=== PATIENT | female | born 1935 | race Caucasian/White ===

== ENCOUNTER 2022-11-09 09:58 | Inpatient (IN) | payer MEDICARE ==
[~2022-11-09] VITALS: Ht 160 cm; Wt 105.0 kg
[2022-11-09] VITALS (11 sets, daily range): BP systolic 154–178; BP diastolic 65–82
[2022-11-09] MEDS ORDERED: SIMVASTATIN5 MG PO (10:18)
[2022-11-09] MEDS ORDERED: METFORMIN500 M2 PO (10:19)
--- NOTE | 2022-11-09 10:20 | NUR ---
PT ESCORTED VIA WHEELCHAIR TO ROOM 15 FOR EVAL OF SOB
[2022-11-09] MEDS ORDERED: NOVOLOG MIX100 U/ML SC (10:24)
[2022-11-09] MEDS ORDERED: JANUVIA50 MG PO (10:30)
[2022-11-09] MEDS ORDERED: LEVOTHYROXIN50 MCG PO (10:31)
[2022-11-09 10:44] LABS: MEAN CELL VOLUME 65.8 fL CALC (80.0-100.0); MEAN CORPUSCULAR HGB 18.1 pG CALC (26.0-32.0); MEAN CORPUSCULAR HGB CONC 27.5 g/dL CAL (32.0-36.0); NEUT# 4.73 thou/uL (2.00-7.15); RED BLOOD COUNT 2.6 mill/uL (4.20-5.60)
--- NOTE | 2022-11-09 10:45 | NUR ---
LAB @ BS FOR SWABS, EKG DONE-GIVEN TO DR. MARROQUIN @ BS. O2SAT 96% RA @ REST, STATES SHE GETS SOB UPON EXERTION ONLY
[2022-11-09 10:54] LABS: ALBUMIN 3.7 g/dL (3.2-5.0); ALKALINE PHOSPHATASE 99 u/l (38-126); ANION GAP 12 (6-22 (CALC)); BILIRUBIN, TOTAL 0.3 mg/dL (0.0-1.4); BUN 18 mg/dL (8-23); BUN/CREATININE RATIO 23 (12-20 (CALC)); CARBON DIOXIDE 25 mmol/l (22-30); CHLORIDE 97 mmol/l (95-108); CREATININE 0.8 mg/dL (0.5-1.0); GFR FOR AFR.AMER. > 60 ML/MIN (>=60 (CALC)); GFR OTHER RACES > 60 ML/MIN (>=60 (CALC)); POTASSIUM 3.8 mmol/l (3.5-5.1); SGOT/AST 35 u/l (9-36); SODIUM 129 mmol/l (137-146); TOTAL PROTEIN 7.1 g/dL (6.3-8.2)
[2022-11-09 10:55] LABS: HEMATOCRIT 17.1 % (37.0-47.0); HEMOGLOBIN 4.7 g/dl (12.0-16.0)
--- NOTE | 2022-11-09 11:06 | NUR ---
STARTED WHEEZING AFTER MOVING AROUND WITH X-RAY, @ BS, BROOKS ORDERED,
[2022-11-09] MEDS ORDERED: ASPIRIN325 MG PO (13:36)
[2022-11-09] MEDS ORDERED: AVAPRO300 MG PO (13:36)
[2022-11-09] MEDS ORDERED: PIOGLITAZONE HY15 MG PO (13:38)
[2022-11-09] MEDS ORDERED: DORZOLAMIDE HYD1 SOL OD (13:40)
[2022-11-09] MEDS ORDERED: TIMOLOL MAL0.5 % OD (13:41)
[2022-11-09] MEDS ORDERED: PRILOSEC20 MG/CAP PO (13:42)
--- NOTE | 2022-11-09 13:43 | NUR ---
ABLE TO WALK TO BR TO VOID LARGE AMT. lAYED IN STRETCHER AND URINATED LARGE AMOUNT BEFORE ASKING AND UNHOOKED FOR BR.
[2022-11-09] MEDS ORDERED: LANTUS SOL100 UNIT/M SC (13:45)
--- NOTE | 2022-11-09 16:03 | NUR ---
VOID X 4- FLUSHING IT
--- NOTE | 2022-11-09 16:46 | NUR ---
PT ADMITTED TO ROOM MS 276. BEDSIDE REPORT GIVEN TO TENZIN. PT TRANSPORTED TO FLOOR VIA WHEELCHAIR
--- NOTE | 2022-11-09 17:57 | NUR ---
PT ARRIVED ON UNIT AT 1633 TRANSPORTED VIA W/C BY ED STAFF, ALERT AND ORIENTED X 3, DENIES PAIN/DISCOMFORT, ORIENTED TO ROOM AND CALL FLORENTINO, SETTLED IN BED, CALL FLORENTINO IN REACH AND BED LOCKED IN LOWEST POSITION.
--- NOTE | 2022-11-09 20:30 | NUR ---
PT IN BED WATCHING TV AND MULUAN AT BEDSIDE. FIRST UNIT OF BLOOD COMPLETED. NO S/S OF DISTRESS OR ADVERSE REACTION NOTED. DENIES PAIN OR DISCOMFORT. LINE FLUSH. CALL LIGHT IN REACH AND BED IN LOWEST POSITION.
[2022-11-09 20:41] LABS: TSH, 3RD GENERATION 1.11 uIU/mL (0.47 - 4.68)
--- NOTE | 2022-11-09 21:19 | NUR ---
PATIENT RESTING IN BED. 2ND UNIT OF PRBC'S HUNG ORDERED VIA LEFT AC SITE. SITE REMAINS HEALTHY AT THIS TIME. UNIT#[id number]. PATIENT INSTRUCTED REGUARDING POSSIABLE ADVERSE REACTIONS SUCH CHILLS, HIVES, SOB, FEVER. BACK PAIN OR HEADACHES. VERBALIZES UNDERSTANDING. ASSISTED OOB TO THE BSC TOP VOID 250CC OF CLEAR YELLOW URINE. ASSISTED BACK TO BED. MONITORING PATIENT AT BEDSIDE PER [facility] PROTOCOL.
[2022-11-10] VITALS (14 sets, daily range): BP systolic 124–171; BP diastolic 48–71
--- NOTE | 2022-11-10 00:50 | NUR ---
PT IN BED RESTING. DENIES PAIN OR DICOMFORT. NO S/S OF DISTRESS NOTED. 2 UNIT OF BLOOD COMPLETED. NO ADVERSE REACTION NOTED. CALL LIGHT IN REACH AND BED IN LOWEST POSITION.
--- NOTE | 2022-11-10 01:31 | NUR ---
PATIENT RESTING IN BED-MIN ASSIST OOB TO BSC TO VOID 200CC OF PALE YELLOW URINE. ASSISTED BACK TO BED, 3RD UNIT OF PRBC'S HUNG VIA LEFT AC SITE-SITE REMAINS HEALTHY. UNIT #[id number] INFUSING. REINFORCED TEACHING WITH PATIENT REGUARDING POSSIBLE ADVERSE REACTIONS. VERBALIZES UNDERSTANDING. MONITORING PATIENT AT BEDSIDE PER [facility] PROTOCOL.
--- NOTE | 2022-11-10 04:46 | NUR ---
PT IN BED RESTING WITH EYES CLOSED BREATHING EVEVN AND UNLABORED NO S/S OF DISTRESS NOTED. CALL LIGHT IN REACH AND BED IN LOWEST POSITION.
--- NOTE | 2022-11-10 04:58 | NUR ---
3RD UNIT OF BLOOD COMPLETED. NO ADVERSE REACTIION NOTED. PT DENIES PAIN OR DISCOMFORT. NO S/S OF DISTRESS NOTED. CALL LIGHT IN REACH AND BED IN LOWEST POSITION.
[2022-11-10 05:19] LABS: IMMATURE GRANULOCYTES 0.8 % (0.0-5.0); MEAN CORPUSCULAR HGB 22.1 pG CALC (26.0-32.0); MEAN CORPUSCULAR HGB CONC 30.5 g/dL CAL (32.0-36.0); NEUT# 5.48 thou/uL (2.00-7.15); RED BLOOD COUNT 4.07 mill/uL (4.20-5.60); RED CELL DISTRI WIDTH 24.6 % (11.5-15.5)
[2022-11-10 05:34] LABS: HEMATOCRIT 29.5 % (37.0-47.0); MEAN CELL VOLUME 72.5 fL CALC (80.0-100.0)
[2022-11-10 05:42] LABS: ALBUMIN 3.7 g/dL (3.2-5.0); ALKALINE PHOSPHATASE 111 u/l (38-126); ANION GAP 14 (6-22 (CALC)); BUN 12 mg/dL (8-23); BUN/CREATININE RATIO 20 (12-20 (CALC)); CARBON DIOXIDE 26 mmol/l (22-30); CHLORIDE 93 mmol/l (95-108); CREATININE 0.6 mg/dL (0.5-1.0); GFR FOR AFR.AMER. > 60 ML/MIN (>=60 (CALC)); GFR OTHER RACES > 60 ML/MIN (>=60 (CALC)); POTASSIUM 3.7 mmol/l (3.5-5.1); SGOT/AST 46 u/l (9-36); SODIUM 129 mmol/l (137-146); TOTAL PROTEIN 6.8 g/dL (6.3-8.2)
[2022-11-10 05:45] LABS: BILIRUBIN, TOTAL 1.4 mg/dL (0.0-1.4)
--- NOTE | 2022-11-10 07:20 | NUR ---
BEDSIDE SHIFT REPORT, PT SLEEPING IN LEFT SIDE-LYING POSITION, BREATHING EVEN AND NON-LABORED, NO SIGN OF DISCOMFORT AT THIS TIME, TELE MONITOR IN PLACE, CALL FLORENTINO IN REACH AND BED LOCKED IN LOWEST POSITION.
--- NOTE | 2022-11-10 09:14 | NUR ---
AWAKE ALERT AND ORIENTED AT THIS TIME, SAT UP IN BED BED FOR MEAL, NO C/O DISCOMFORT, CALL FLORENTINO IN REACH.
[2022-11-10] MEDS ORDERED: TAM75CAP PO (12:05)
[2022-11-10] MEDS ORDERED: ZITHROMAX250 MG PO (12:06)
[2022-11-10] MEDS ORDERED: VENOFER20 MG/ML IV (12:07)
--- NOTE | 2022-11-10 14:47 | NUR ---
Discharge instructions given. Patient verbalizes understanding of same. Discharged in good condition via Wheelchair to Home with spouse. All belongings sent with pt.
== END 2022-11-10 14:47 | disposition home or self-care (01) | DRG 812 ==
LOC: ED 09:58 → ED-I 11:20 → ED 11:42 → MS2 11:43
PROVIDERS: Family Medicine; ADMIT Internal Medicine; ATTEND Internal Medicine
PROC: 30233N1 Transfusion of Nonautologous Red Blood Cells into Peripheral Vein, Percutaneous Approach (ICD-10-PCS; principal; 2022-11-09)
PROC: 30233N1 Transfusion of Nonautologous Red Blood Cells into Peripheral Vein, Percutaneous Approach (ICD-10-PCS; 2022-11-09)
PROC: 30233N1 Transfusion of Nonautologous Red Blood Cells into Peripheral Vein, Percutaneous Approach (ICD-10-PCS; 2022-11-10)
DX: D50.9 Iron deficiency anemia, unspecified (principal); E87.1 Hypo-osmolality and hyponatremia; J10.1 Influenza due to other identified influenza virus with other respiratory manifestations; I11.0 Hypertensive heart disease with heart failure; I50.9 Heart failure, unspecified; E11.9 Type 2 diabetes mellitus without complications; E03.9 Hypothyroidism, unspecified; E78.5 Hyperlipidemia, unspecified; E66.9 Obesity, unspecified; Z86.73 Personal history of transient ischemic attack (TIA), and cerebral infarction without residual deficits; Z79.84 Long term (current) use of oral hypoglycemic drugs; Z20.822 Contact with and (suspected) exposure to COVID-19
CPT/HCPCS: J1756; P9016

== ENCOUNTER 2024-11-08 11:03 | Emergency (ER) | payer MEDICARE ==
[~2024-11-08] VITALS: Ht 160 cm; Wt 97.0 kg
[~2024-11-08 11:03] MED LIST: ASPIRIN325 MG PO; AVAPRO300 MG PO; DORZOLAMIDE HYD1 SOL OD; JANUVIA50 MG PO; LANTUS SOL100 UNIT/M SC; LEVOTHYROXIN50 MCG PO; METFORMIN500 M2 PO; NOVOLOG MIX100 U/ML SC; PIOGLITAZONE HY15 MG PO; PRILOSEC20 MG/CAP PO; SIMVASTATIN5 MG PO; TAM75CAP PO; TIMOLOL MAL0.5 % OD; VENOFER20 MG/ML IV; ZITHROMAX250 MG PO
[2024-11-08 13:50] LABS: URINE BILIRUBIN - DIPSTICK Negative (NEGATIVE); URINE BLOOD DIPSTICK Negative (NEGATIVE); URINE GLUCOSE - DIPSTICK Negative (NEGATIVE); URINE KETONE Negative (NEGATIVE); URINE NITRITE - DIPSTICK Negative (Negative); URINE PROTEIN - DIPSTICK Negative (NEG-TRACE); URINE UROBILINOGEN - DIPSTICK 0.2 E.U./dL (0.2)
[2024-11-08 13:51] LABS: URINE COLOR Yellow; URINE LEUK ESTERASE Small (NEGATIVE)
[2024-11-08 13:57] LABS: URINE SQUAMOUS EPITHELIAL CELL FEW EPI/hpf (0-FEW)
[2024-11-08 13:58] LABS: URINE BACTERIA FEW hpf
[2024-11-08] MEDS ORDERED: LIDOcaine HCl 1% (Local Anesth.) 20 ML VIAL STI ONE (14:00)
[2024-11-08] MEDS ORDERED: DOXYCYCLINE HYCLATE 100 MG/CAP PO ONE (14:00)
[2024-11-08] MEDS ORDERED: POVIDONE IODINE 0.5 OZ/BTL TOP ONE (14:15)
[2024-11-08] MEDS ORDERED: traMADol HCL 50 MG/TAB PO ONE (14:30)
[2024-11-08] MEDS ORDERED: SULFAMETHOXAZOLE W/TRIMETHOPRI 1 COMBO TAB PO ONE (14:30)
[2024-11-08] MEDS ORDERED: BACTRIM DS1 TAB PO (14:39)
[2024-11-08 15:21] VITALS: BP 156/79
== END 2024-11-08 15:26 | disposition home or self-care (01) ==
LOC: ED 11:03
PROVIDERS: Nurse Practitioner
PROC: 0U9LXZZ Drainage of Vestibular Gland, External Approach (ICD-10-PCS; principal; 2024-11-08)
DX: N75.0 Cyst of Bartholin's gland (principal); N39.0 Urinary tract infection, site not specified; B96.20 Unspecified Escherichia coli [E. coli] as the cause of diseases classified elsewhere; I10 Essential (primary) hypertension; E11.9 Type 2 diabetes mellitus without complications; Z86.73 Personal history of transient ischemic attack (TIA), and cerebral infarction without residual deficits; Z87.440 Personal history of urinary (tract) infections; Z79.84 Long term (current) use of oral hypoglycemic drugs; Z79.4 Long term (current) use of insulin

== ENCOUNTER 2024-11-11 11:16 | Emergency (ER) | payer MEDICARE ==
[~2024-11-11] VITALS: Ht 160 cm; Wt 97.5 kg
[~2024-11-11 11:16] MED LIST changes: +BACTRIM DS1 TAB PO
[2024-11-11 11:37] VITALS: BP 148/71
[2024-11-11 11:48] VITALS: BP 158/124
[2024-11-11 12:01] VITALS: BP 141/79
[2024-11-11] MEDS ORDERED: SULFAMETHOXAZOLE W/TRIMETHOPRI 1 COMBO TAB PO ONE (12:45)
[2024-11-11] MEDS ORDERED: BACTRIM DS1 TAB PO (13:51)
[2024-11-11 13:56] VITALS: BP 140/78
== END 2024-11-11 14:16 | disposition home or self-care (01) ==
LOC: ED 11:16
DX: Z48.01 Encounter for change or removal of surgical wound dressing (principal); I10 Essential (primary) hypertension; E11.9 Type 2 diabetes mellitus without complications; Z86.73 Personal history of transient ischemic attack (TIA), and cerebral infarction without residual deficits; Z79.4 Long term (current) use of insulin

== ENCOUNTER 2024-11-14 08:39 | Emergency (ER) | payer MEDICARE ==
[~2024-11-14] VITALS: Ht 160 cm; Wt 90.0 kg
[2024-11-14 08:50] VITALS: BP 150/83
[2024-11-14 08:58] VITALS: BP 150/83
== END 2024-11-14 09:22 | disposition home or self-care (01) ==
LOC: ED 08:39
DX: Z48.01 Encounter for change or removal of surgical wound dressing (principal); N39.0 Urinary tract infection, site not specified; I10 Essential (primary) hypertension; E11.9 Type 2 diabetes mellitus without complications; Z86.73 Personal history of transient ischemic attack (TIA), and cerebral infarction without residual deficits; Z79.4 Long term (current) use of insulin; Z79.84 Long term (current) use of oral hypoglycemic drugs